=== PATIENT | male | born 1985 | race Caucasian/White ===

== ENCOUNTER 2018-08-06 18:31 | Emergency (ER) | payer SELFPAY ==
[~2018-08-06] VITALS: Ht 188 cm; Wt 81.8 kg
[2018-08-06 18:36] VITALS: TEMP 97.8
[2018-08-06 19:31] LABS: COLLECTION METHOD CLEAN CATCH
[2018-08-06] MEDS ORDERED: FLEXERIL 1010 MG/TAB PO (19:36)
[2018-08-06 19:42] LABS: MUCOUS Present /lpf; PH 5 (5-8); SQUAMOUS EPITHELIAL None Seen /hpf; URINE APPEARANCE Clear; URINE BACTERIA None Seen /hpf; URINE BILIRUBIN Negative (NEGATIVE); URINE BLOOD Negative (NEGATIVE); URINE COLOR Yellow; URINE GLUCOSE Negative (NEGATIVE); URINE KETONE Negative (NEGATIVE); URINE LEUKOCYTE ESTERASE Negative (NEGATIVE); URINE NITRATE Negative (NEGATIVE); URINE PROTEIN(semi-quant) 1+ (NEGATIVE); URINE RBC 0-2 /hpf; URINE UROBILINOGEN Negative (NEGATIVE)
[2018-08-06 20:06] VITALS: BP 129/74; PULSE 100
== END 2018-08-06 20:06 | disposition home or self-care (01) ==
LOC: COL.ER 18:31
PROVIDERS: Physician Assistant
DX: M54.5 Low back pain (principal)

== ENCOUNTER 2018-09-25 15:41 | Emergency (ER) | payer MEDICAID ==
[~2018-09-25] VITALS: Ht 188 cm; Wt 72.7 kg
[~2018-09-25 15:41] MED LIST: FLEXERIL 1010 MG/TAB PO
[2018-09-25 15:51] VITALS: TEMP 98
[2018-09-25] MEDS ORDERED: NORCO 325 MG-51 TAB PO (18:41)
[2018-09-25] MEDS ORDERED: CEPHALEXIN500 M1 PO (18:41)
[2018-09-25 18:53] VITALS: BP 132/82; PULSE 82
== END 2018-09-25 18:53 | disposition home or self-care (01) ==
LOC: COL.ER 15:41
DX: S62.637A Displaced fracture of distal phalanx of left little finger, initial encounter for closed fracture (principal); S81.011A Laceration without foreign body, right knee, initial encounter; S43.401A Unspecified sprain of right shoulder joint, initial encounter; F41.9 Anxiety disorder, unspecified; F17.210 Nicotine dependence, cigarettes, uncomplicated; V89.2XXA Person injured in unspecified motor-vehicle accident, traffic, initial encounter; Y93.55 Activity, bike riding; Y92.39 Other specified sports and athletic area as the place of occurrence of the external cause

== ENCOUNTER 2020-07-22 17:42 | Emergency (ER) | payer SELFPAY ==
[~2020-07-22] VITALS: Ht 188 cm; Wt 77.3 kg
[~2020-07-22 17:42] MED LIST changes: +CEPHALEXIN500 M1 PO; +NORCO 325 MG-51 TAB PO
[2020-07-22 17:48] VITALS: TEMP 98
[2020-07-22 18:22] LABS: BASO # 0.1 (0.0-0.2); BASO % 0.8 % (0.0-2.0); EOS # 0.4 (0.0-0.7); EOS % 4.6 % (0-4.0); GRAN # 5.8 (1.4-6.5); GRAN % 66.7 % (42.2-75.2); HEMOGLOBIN 15.1 g/dl (13.5-18.0); LYMPH # 1.7 (1.2-3.4); MEAN CELL VOLUME 90 fl (80.0-100.0); MEAN CORPUSCULAR HEMOGLOBIN 29 pg (27.0-31.0); MEAN CORPUSCULAR HGB CONC 33 g/dl (33.0-37.0); MEAN PLATELET VOLUME 9.1 fl (7.4-10.4); MONO # 0.7 (0.1-0.6); MONO % 7.8 % (1.7-9.3); PLATELET COUNT 340 K/mm3 (130-400); RED BLOOD COUNT 5.14 M/mm3 (4.20-5.60); REDCELL DISTRIBUTION WIDTH-CV 12.9 % (11.5-14.5)
[2020-07-22 18:23] LABS: ALANINE AMINOTRANSFERASE 16 U/L (4-49); ALBUMIN 4.6 gm/dL (3.5-5.0); ALKALINE PHOSPHATASE 82 U/L (50-136); ANION GAP 9 mmol/L (7-16); AST,SGOT 34 U/L (15-37); BILIRUBIN,TOTAL 1.3 mg/dL (0.0-1.0); BLOOD UREA NITROGEN 18 mg/dL (9-20); CALCIUM 9.3 mg/dL (8.4-10.2); CARBON DIOXIDE 28 mmol/L (22-30); CHLORIDE 104 mmol/L (98-107); CREATININE, serum 0.96 (0.66-1.25); GLUCOSE 100 mg/dL (74-106); POTASSIUM 3.6 mmol/L (3.4-5.0); SODIUM 141 mmol/L (137-145); TOTAL PROTEIN 8.4 gm/dL (6.4-8.2)
[2020-07-22 18:37] LABS: INR 1.1 (0.8-3.0); PROTHROMBIN TIME 11.9 SECONDS (9.7-12.8)
[2020-07-22 18:46] LABS: TROPONIN-I < 0.012 ng/mL (0.000-0.035)
[2020-07-22] MEDS ORDERED: PRILOTC PO (18:51)
[2020-07-22 19:03] VITALS: BP 154/80; PULSE 78
== END 2020-07-22 19:03 | disposition home or self-care (01) ==
LOC: COL.ER 17:42
PROVIDERS: Family Medicine
DX: R07.9 Chest pain, unspecified (principal); Z98.84 Bariatric surgery status
CPT/HCPCS: C9113; J7040

== ENCOUNTER 2020-10-16 05:47 | Emergency (ER) | payer SELFPAY ==
[~2020-10-16] VITALS: Ht 188 cm; Wt 72.7 kg
[~2020-10-16 05:47] MED LIST changes: +PRILOTC PO
[2020-10-16 05:49] VITALS: TEMP 98.3
[2020-10-16 06:24] LABS: BILIRUBIN,TOTAL 0.5 mg/dL (0.0-1.0); CREATININE, serum 0.81 (0.66-1.25); POTASSIUM 3.4 mmol/L (3.4-5.0)
[2020-10-16 06:27] LABS: BASO # 0.1 (0.0-0.2); BASO % 0.6 % (0.0-2.0); EOS # 0.6 (0.0-0.7); EOS % 5.3 % (0-4.0); GRAN # 6.3 (1.4-6.5); GRAN % 60.8 % (42.2-75.2); HEMATOCRIT 41.5 % (42.0-52.0); HEMOGLOBIN 13.7 g/dl (13.5-18.0); LYMPH # 2.4 (1.2-3.4); LYMPH % 23.3 % (20.0-51.0); MEAN CELL VOLUME 89 fl (80.0-100.0); MEAN CORPUSCULAR HEMOGLOBIN 30 pg (27.0-31.0); MEAN CORPUSCULAR HGB CONC 33 g/dl (33.0-37.0); MONO % 9.7 % (1.7-9.3); PLATELET COUNT 373 K/mm3 (130-400); RED BLOOD COUNT 4.65 M/mm3 (4.20-5.60)
[2020-10-16 07:21] LABS: COLLECTION METHOD CLEAN CATCH
[2020-10-16 07:31] LABS: MUCOUS Present /lpf; PH 7 (5-8); SQUAMOUS EPITHELIAL None Seen /hpf; URINE APPEARANCE Hazy; URINE BACTERIA None Seen /hpf; URINE BILIRUBIN Negative (NEGATIVE); URINE BLOOD 3+ (NEGATIVE); URINE COLOR Yellow; URINE GLUCOSE Negative (NEGATIVE); URINE KETONE Negative (NEGATIVE); URINE LEUKOCYTE ESTERASE Negative (NEGATIVE); URINE NITRATE Negative (NEGATIVE); URINE PROTEIN(semi-quant) 1+ (NEGATIVE); URINE RBC >50 /hpf; URINE UROBILINOGEN Negative (NEGATIVE)
[2020-10-16] MEDS ORDERED: NORCO 325 MG-51 TAB PO (07:54)
[2020-10-16 08:00] VITALS: BP 151/91; PULSE 82
== END 2020-10-16 08:34 | disposition home or self-care (01) ==
LOC: COL.ER 05:47
PROVIDERS: Personal Emergency Response Attendant
DX: R10.9 Unspecified abdominal pain (principal); Z98.84 Bariatric surgery status
CPT/HCPCS: J1885; J2405; J7030

== ENCOUNTER 2021-07-24 17:14 | Emergency (ER) | payer SELFPAY ==
[~2021-07-24] VITALS: Ht 188 cm; Wt 90.9 kg
[2021-07-24] MEDS ORDERED: ULTRAM 50MG TAB50 MG PO (18:39)
[2021-07-24] MEDS ORDERED: AMOXICILLIN 50500 MG PO (18:39)
[2021-07-24 18:58] VITALS: BP 179/72; PULSE 63; TEMP 97.7
== END 2021-07-24 19:00 | disposition home or self-care (01) ==
LOC: COL.ER 17:14
DX: K02.9 Dental caries, unspecified (principal); F17.200 Nicotine dependence, unspecified, uncomplicated

== ENCOUNTER 2021-10-30 20:18 | Emergency (ER) | payer SELFPAY ==
[~2021-10-30] VITALS: Ht 188 cm; Wt 90.9 kg
[~2021-10-30 20:18] MED LIST changes: +AMOXICILLIN 50500 MG PO; +ULTRAM 50MG TAB50 MG PO
[2021-10-30 20:24] VITALS: TEMP 100
[2021-10-30 20:55] VITALS: BP 100/84; PULSE 79
== END 2021-10-30 20:35 | disposition home or self-care (01) ==
LOC: COL.ER 20:18
DX: U07.1 COVID-19 (principal); Z73.0 Burn-out

== ENCOUNTER 2022-06-27 09:14 | Emergency (ER) | payer SELFPAY ==
[~2022-06-27] VITALS: Ht 188 cm; Wt 88.6 kg
[~2022-06-27 09:14] MED LIST changes: +ZOFRAN ODT4 MG PO
[2022-06-27 09:19] VITALS: BP 138/88; TEMP 97.6
[2022-06-27] MEDS ORDERED: CLEOCIN HCL300 MG PO (10:03)
[2022-06-27 10:38] VITALS: PULSE 82
== END 2022-06-27 10:39 | disposition home or self-care (01) ==
LOC: COL.ER 09:14
DX: K04.7 Periapical abscess without sinus (principal); Z87.891 Personal history of nicotine dependence; Z28.310 Unvaccinated for COVID-19

== ENCOUNTER → 2022-07-08 | Outpatient (CLI) | payer OTHER ==
[~2022-07-08] MED LIST changes: +CLEOCIN HCL300 MG PO
== END ==
LOC: COL.RAD 07:52
DX: T14.8XXA Other injury of unspecified body region, initial encounter (principal); R91.1 Solitary pulmonary nodule; Z98.890 Other specified postprocedural states
CPT/HCPCS: Q9967

== ENCOUNTER 2022-07-20 12:35 | Emergency (ER) | payer OTHER ==
[~2022-07-20] VITALS: Ht 188 cm; Wt 88.6 kg
[2022-07-20 12:45] VITALS: TEMP 98.1
[2022-07-20 13:51] LABS: INR 1.1 (0.8-3.0); PROTHROMBIN TIME 12.1 SECONDS (9.7-12.8)
[2022-07-20 14:10] LABS: BASO % 0.5 % (0.0-2.0); EOS # 0.3 K/mm3 (0.0-0.7); EOS % 5.4 % (0.0-4.0); GRAN # 3.3 K/mm3 (1.4-6.5); GRAN % 58.3 % (42.2-75.2); HEMATOCRIT 45.2 % (42.0-52.0); HEMOGLOBIN 15.3 g/dl (13.5-18.0); LYMPH # 1.6 K/mm3 (1.2-3.4); LYMPH % 28.4 % (20.0-51.0); MEAN CELL VOLUME 86 fl (80.0-100.0); MEAN CORPUSCULAR HEMOGLOBIN 29 pg (27-31); MEAN CORPUSCULAR HGB CONC 34 g/dl (33.0-37.0); MEAN PLATELET VOLUME 9.6 fl (7.4-10.4); MONO # 0.4 K/mm3 (0.1-0.6); RED BLOOD COUNT 5.25 M/mm3 (4.20-5.60)
[2022-07-20 14:15] LABS: PLATELET COUNT 280 K/mm3 (130-400)
[2022-07-20 14:36] LABS: ALBUMIN 4.2 gm/dL (3.5-5.0); BILIRUBIN,TOTAL 0.5 mg/dL (0.2-1.2); CALCIUM 9.3 mg/dL (8.4-10.2); CREATININE, serum 0.83 mg/dL (0.72-1.25); POTASSIUM 4.3 mmol/L (3.5-4.5); TOTAL PROTEIN 7.4 gm/dL (6.2-8.1)
[2022-07-20] MEDS ORDERED: NORCO 325 MG-51 TAB PO (16:39)
[2022-07-20 16:47] VITALS: BP 127/83; PULSE 70
[2022-07-21] MEDS ORDERED: PRILOTC PO ×2 (13:36→18:27)
[2022-07-21] MEDS ORDERED: NORCO 325 MG-51 TAB PO (18:27)
== END 2022-07-20 16:50 | disposition home or self-care (01) ==
LOC: COL.ER 12:35
PROVIDERS: Family Medicine
DX: S70.01XA Contusion of right hip, initial encounter (principal); Z28.310 Unvaccinated for COVID-19; W10.9XXA Fall (on) (from) unspecified stairs and steps, initial encounter; Y92.59 Other trade areas as the place of occurrence of the external cause; Y99.0 Civilian activity done for income or pay
CPT/HCPCS: J1170; J2270; J2405; Q9967

== ENCOUNTER 2022-07-21 13:00 | Day surgery (SDC) | payer OTHER ==
[~2022-07-21] VITALS: Ht 188 cm; Wt 88.4 kg
[2022-07-21] MEDS ORDERED: PRILOTC PO ×2 (13:36→18:27)
[2022-07-21 13:37] VITALS: BP 125/74; PULSE 75; TEMP 97.6
[2022-07-21 14:26] LABS: TRICYCLIC ANTIDEPRESS URINE NEGATIVE
[2022-07-21 15:52] VITALS: BP 109/71; PULSE 56; TEMP 97.2
[2022-07-21 16:07] VITALS: BP 123/75; PULSE 72; TEMP 97.4
[2022-07-21 16:22] VITALS: BP 124/61; PULSE 78
[2022-07-21 16:37] VITALS: BP 117/67; PULSE 68
[2022-07-21 16:52] VITALS: BP 123/69; PULSE 62
--- NOTE | 2022-07-21 17:00 | NUR ---
1552 RETURNS TO ROOM 8 PER CART. AWAKE, ALERT. RESP UNLABORED. HOB ELEVATED 80 DEGREES. DENIES PAIN. LUDA DRAIN PATENT RIGHT FLANK. SMALL AMOUNT OF RED DRAINAGE OBSERVED. DRAIN DRESSING CLEAN DRY AND INTACT. CALL LIGHT AT SIDE. BROTHER IN ROOM. 1605 TOLERATES PO SODA AND AND MUFFIN WITHOUT NAUSEA. 1620 DENIES DISCOMFORT. 1645 DISCHARGE INSTRUCTIONS THOROUGHLY REVIEWED WITH PATIENT INCLUDING DRAIN TEACHING. PATIENT AND BROTHER VERBALIZE UNDERSTANDING. EDUCATIONAL MATERIALS AND INSTRUCTIONS PROVIDED IN DISCHARGE FOLDER 1700 SITS ON EDGE OF BED. DRESSES SELF
[2022-07-21] MEDS ORDERED: NORCO 325 MG-51 TAB PO (18:27)
== END 2022-07-21 17:08 | disposition home or self-care (01) ==
LOC: SDCO 13:00
PROVIDERS: Nurse Anesthetist, Certified Registered
DX: S30.0XXA Contusion of lower back and pelvis, initial encounter (principal); F17.290 Nicotine dependence, other tobacco product, uncomplicated; W10.9XXA Fall (on) (from) unspecified stairs and steps, initial encounter; Z28.310 Unvaccinated for COVID-19
CPT/HCPCS: J0690; J1100; J1170; J2405; J2704; J3010; J7120